=== PATIENT | female | born 1990 | race Caucasian/White ===

== ENCOUNTER 2016-09-05 13:47 | Emergency (ER) | payer MEDICAID ==
[~2016-09-05] VITALS: Ht 157.5 cm; Wt 79.5 kg
[~2016-09-05 13:47] MED LIST: ANDRO 100100 MG/ML IM; BIRTH CONTROL; CATAPRES 0.1MG0.1 MG PO; CEFTIN500 MG PO; CEPHALEXIN500 M1 PO; CHANTIX 1MG1 MG PO; DILANTIN 100MG100 MG PO; FETZIMA80; KEPPRA 500MG500 MG PO; KEPPRA250 MG PO; LEXAPRO20 MG PO; MOBIC15 MG PO; NORCO 325 MG-51 TAB PO; PROMETHAZINE12.5 M5 PO; VALIUM 5MG T5 MG/TAB PO; VENTOLIN0.09 MG IH; VYVANSE50 MG PO; ZITHROMAX 250M250 MG PO; ZOFRAN ODT4 MG PO; ZORVOLEX18 MG PO
[2016-09-05 13:53] VITALS: BP 109/95; PULSE 98; TEMP 99.4
[2016-09-05] MEDS ORDERED: ULTRAM 50MG TAB50 MG PO (15:31)
[2016-09-05] MEDS ORDERED: KEPPRA1000 MG PO (15:31)
[2016-09-05] MEDS ORDERED: NORCO 325 MG-51 TAB PO (15:31)
== END 2016-09-05 16:25 | disposition home or self-care (01) ==
LOC: COL.ER 13:47
DX: M25.552 Pain in left hip (principal); M25.512 Pain in left shoulder; W19.XXXA Unspecified fall, initial encounter; G40.909 Epilepsy, unspecified, not intractable, without status epilepticus
CPT/HCPCS: J1170; J1885

== ENCOUNTER 2016-10-16 02:08 | Emergency (ER) | payer MEDICAID ==
[~2016-10-16] VITALS: Ht 157.5 cm; Wt 79.5 kg
[~2016-10-16 02:08] MED LIST changes: +KEPPRA1000 MG PO; +ULTRAM 50MG TAB50 MG PO
[2016-10-16 02:11] VITALS: TEMP 98.6
[2016-10-16] MEDS ORDERED: KEPPRA XR750 MG PO (02:18)
[2016-10-16 02:54] LABS: BASO # 0.1 (0.0-0.2); BASO % 0.4 % (0.0-2.0); EOS # 0.3 (0.0-0.7); EOS % 2.3 % (0-4.0); GRAN # 6.9 (1.4-6.5); GRAN % 59.6 % (42.2-75.2); HEMATOCRIT 47.8 % (37.0-47.0); HEMOGLOBIN 16.6 g/dl (12.5-16.0); LYMPH # 3.7 (1.2-3.4); LYMPH % 32.1 % (20.0-51.0); MEAN CELL VOLUME 89 fl (80.0-100.0); MEAN CORPUSCULAR HEMOGLOBIN 31 pg (27.0-31.0); MEAN CORPUSCULAR HGB CONC 35 g/dl (33.0-37.0); MEAN PLATELET VOLUME 10.7 fl (7.4-10.4); MONO # 0.6 (0.1-0.6); MONO % 5.2 % (1.7-9.3); PLATELET COUNT 215 K/mm3 (130-400); RED BLOOD COUNT 5.36 M/mm3 (4.10-5.30); REDCELL DISTRIBUTION WIDTH-CV 13.5 % (11.5-14.5); WHITE BLOOD COUNT 11.5 K/mm3 (4.8-10.8)
[2016-10-16] MEDS ORDERED: LAMICTAL XR25 MG PO (02:56)
[2016-10-16 03:04] LABS: ADJUSTED CALCIUM 8.5 mg/dL (8.4-10.2); ALANINE AMINOTRANSFERASE 34 U/L (9-52); ALBUMIN 4.7 gm/dL (3.5-5.0); ALKALINE PHOSPHATASE 75 U/L (50-136); ANION GAP 14 mmol/L (7-16); BLOOD UREA NITROGEN 11 mg/dL (7-17); CALCIUM 9.1 mg/dL (8.4-10.2); CARBON DIOXIDE 23 mmol/L (22-30); CHLORIDE 105 mmol/L (98-107); CREATININE, serum 0.79 mg/dL (0.52-1.25); GLUCOSE 78 mg/dL (74-106); POTASSIUM 3.6 mmol/L (3.4-5.0); SODIUM 141 mmol/L (137-145); TOTAL PROTEIN 7.6 gm/dL (6.4-8.2)
[2016-10-16 03:17] LABS: PH 7 (5-8); SQUAMOUS EPITHELIAL 0-2 /hpf; URINE APPEARANCE Clear; URINE BACTERIA None Seen /hpf; URINE BILIRUBIN Negative (NEGATIVE); URINE BLOOD Negative (NEGATIVE); URINE COLOR Yellow; URINE GLUCOSE Negative (NEGATIVE); URINE KETONE Negative (NEGATIVE)
[2016-10-16 03:22] LABS: C-REACTIVE PROTEIN < 0.5 mg/dL (0.0-0.9)
[2016-10-16] MEDS ORDERED: CEFTIN500 MG PO (03:42)
[2016-10-16 04:05] VITALS: BP 126/75; PULSE 92
== END 2016-10-16 04:08 | disposition home or self-care (01) ==
LOC: COL.ER 02:08
PROVIDERS: Nurse Practitioner
DX: N39.0 Urinary tract infection, site not specified (principal)
CPT/HCPCS: J1170; J2405; J7030

== ENCOUNTER → 2016-10-24 | Outpatient (CLI) | payer MEDICAID ==
[~2016-10-24] MED LIST changes: +KEPPRA XR500 MG PO; +KEPPRA XR750 MG PO; +LAMICTAL 100MG100 MG PO; +LAMICTAL XR25 MG PO; +RESTORIL 77.5 MG/CAP PO
== END ==
LOC: COL.RAD 12:30
DX: G40.309 Generalized idiopathic epilepsy and epileptic syndromes, not intractable, without status epilepticus (principal)
CPT/HCPCS: A9585

== ENCOUNTER 2016-11-11 02:44 | Emergency (ER) | payer MEDICAID ==
[~2016-11-11] VITALS: Ht 160 cm; Wt 79.5 kg
[~2016-11-11 02:44] MED LIST changes: -KEPPRA XR500 MG PO; -LAMICTAL 100MG100 MG PO; -RESTORIL 77.5 MG/CAP PO
[2016-11-11 02:48] VITALS: TEMP 98.4
[2016-11-11] MEDS ORDERED: LAMICTAL 100MG100 MG PO (02:52)
[2016-11-11] MEDS ORDERED: RESTORIL 77.5 MG/CAP PO (02:53)
[2016-11-11 03:10] LABS: BASO % 0.5 % (0.0-2.0); EOS # 0.3 (0.0-0.7); EOS % 3.6 % (0-4.0); GRAN # 4.3 (1.4-6.5); GRAN % 50.7 % (42.2-75.2); HEMATOCRIT 45.9 % (37.0-47.0); HEMOGLOBIN 15.6 g/dl (12.5-16.0); LYMPH # 3.4 (1.2-3.4); LYMPH % 39.8 % (20.0-51.0); MEAN CELL VOLUME 90 fl (80.0-100.0); MEAN CORPUSCULAR HEMOGLOBIN 30 pg (27.0-31.0); MEAN CORPUSCULAR HGB CONC 34 g/dl (33.0-37.0); MEAN PLATELET VOLUME 10.7 fl (7.4-10.4); MONO # 0.4 (0.1-0.6); PLATELET COUNT 219 K/mm3 (130-400); RED BLOOD COUNT 5.13 M/mm3 (4.10-5.30); REDCELL DISTRIBUTION WIDTH-CV 13.2 % (11.5-14.5); WHITE BLOOD COUNT 8.5 K/mm3 (4.8-10.8)
[2016-11-11 03:22] LABS: ADJUSTED CALCIUM 8.6 mg/dL (8.4-10.2); ALBUMIN 4.3 gm/dL (3.5-5.0); BILIRUBIN,TOTAL 0.8 mg/dL (0.0-1.0); CALCIUM 8.8 mg/dL (8.4-10.2); CREATININE, serum 0.74 mg/dL (0.52-1.25); POTASSIUM 3.8 mmol/L (3.4-5.0); TOTAL PROTEIN 6.8 gm/dL (6.4-8.2)
[2016-11-11 03:38] LABS: PROLACTIN 16.2 ng/mL (3.0-18.6)
[2016-11-11] MEDS ORDERED: KEPPRA XR500 MG PO (05:07)
[2016-11-11 05:24] VITALS: BP 120/73; PULSE 78
== END 2016-11-11 05:28 | disposition home or self-care (01) ==
LOC: COL.ER 02:44
PROVIDERS: Emergency Medicine
DX: G40.909 Epilepsy, unspecified, not intractable, without status epilepticus (principal)
CPT/HCPCS: J1885; J3360; J7030

== ENCOUNTER 2016-12-14 15:43 | Emergency (ER) | payer MEDICAID ==
[~2016-12-14] VITALS: Ht 157.5 cm; Wt 79.5 kg
[~2016-12-14 15:43] MED LIST changes: +KEPPRA XR500 MG PO; +LAMICTAL 100MG100 MG PO; +RESTORIL 77.5 MG/CAP PO
[2016-12-14 15:46] VITALS: BP 132/73; TEMP 98.5
[2016-12-14 17:13] LABS: BASO # 0.1 (0.0-0.2); BASO % 0.9 % (0.0-2.0); EOS # 0.4 (0.0-0.7); EOS % 4.8 % (0-4.0); GRAN # 4.2 (1.4-6.5); GRAN % 50.4 % (42.2-75.2); HEMOGLOBIN 15.2 g/dl (12.5-16.0); LYMPH # 3.2 (1.2-3.4); LYMPH % 38.5 % (20.0-51.0); MEAN CELL VOLUME 90 fl (80.0-100.0); MEAN CORPUSCULAR HEMOGLOBIN 31 pg (27.0-31.0); MEAN CORPUSCULAR HGB CONC 35 g/dl (33.0-37.0); MEAN PLATELET VOLUME 11.1 fl (7.4-10.4); MONO # 0.4 (0.1-0.6); PLATELET COUNT 232 K/mm3 (130-400); RED BLOOD COUNT 4.91 M/mm3 (4.10-5.30); REDCELL DISTRIBUTION WIDTH-CV 13.3 % (11.5-14.5); WHITE BLOOD COUNT 8.2 K/mm3 (4.8-10.8)
[2016-12-14 18:15] LABS: ADJUSTED CALCIUM 8.7 mg/dL (8.4-10.2); ALANINE AMINOTRANSFERASE 52 U/L (9-52); ALBUMIN 3.8 gm/dL (3.5-5.0); ALKALINE PHOSPHATASE 65 U/L (50-136); ANION GAP 9 mmol/L (7-16); BILIRUBIN,TOTAL 0.7 mg/dL (0.0-1.0); BLOOD UREA NITROGEN 5 mg/dL (7-17); CALCIUM 8.5 mg/dL (8.4-10.2); CARBON DIOXIDE 24 mmol/L (22-30); CHLORIDE 108 mmol/L (98-107); CREATINE KINASE 64 U/L (30-135); CREATININE, serum 0.61 mg/dL (0.52-1.25); GLUCOSE 85 mg/dL (74-106); POTASSIUM 3.9 mmol/L (3.4-5.0); SODIUM 141 mmol/L (137-145); TOTAL PROTEIN 6.2 gm/dL (6.4-8.2)
[2016-12-14 18:18] LABS: C-REACTIVE PROTEIN < 0.5 mg/dL (0.0-0.9)
[2016-12-14 18:55] VITALS: PULSE 88
== END 2016-12-14 18:55 | disposition home or self-care (01) ==
LOC: COL.ER 15:43
PROVIDERS: Emergency Medicine; Nurse Practitioner
DX: T67.5XXA Heat exhaustion, unspecified, initial encounter (principal); X30.XXXA Exposure to excessive natural heat, initial encounter; G40.909 Epilepsy, unspecified, not intractable, without status epilepticus; G43.909 Migraine, unspecified, not intractable, without status migrainosus
CPT/HCPCS: J1885; J2405; J7030

== ENCOUNTER 2017-02-16 23:24 | Emergency (ER) | payer MEDICAID ==
[~2017-02-16] VITALS: Ht 160 cm; Wt 79.5 kg
[2017-02-16 23:30] VITALS: TEMP 99
[2017-02-17 00:48] LABS: BASO % 0.5 % (0.0-2.0); EOS # 0.3 (0.0-0.7); EOS % 3.3 % (0-4.0); GRAN # 4.4 (1.4-6.5); GRAN % 50.5 % (42.2-75.2); HEMATOCRIT 38.3 % (37.0-47.0); HEMOGLOBIN 13.2 g/dl (12.5-16.0); LYMPH # 3.5 (1.2-3.4); LYMPH % 39.9 % (20.0-51.0); MEAN CELL VOLUME 89 fl (80.0-100.0); MEAN CORPUSCULAR HEMOGLOBIN 31 pg (27.0-31.0); MEAN CORPUSCULAR HGB CONC 35 g/dl (33.0-37.0); MEAN PLATELET VOLUME 10.7 fl (7.4-10.4); MONO # 0.5 (0.1-0.6); MONO % 5.2 % (1.7-9.3); PLATELET COUNT 213 K/mm3 (130-400); RED BLOOD COUNT 4.31 M/mm3 (4.10-5.30); REDCELL DISTRIBUTION WIDTH-CV 13.1 % (11.5-14.5); WHITE BLOOD COUNT 8.7 K/mm3 (4.8-10.8)
[2017-02-17 01:18] LABS: PROLACTIN 24.1 ng/mL (3.0-18.6)
[2017-02-17 03:13] LABS: PH 6 (5-8); SQUAMOUS EPITHELIAL 0-2 /hpf; URINE APPEARANCE Clear; URINE BACTERIA None Seen /hpf; URINE BILIRUBIN Negative (NEGATIVE); URINE BLOOD Negative (NEGATIVE); URINE COLOR Yellow; URINE GLUCOSE Negative (NEGATIVE); URINE KETONE Negative (NEGATIVE); URINE RBC 0-2 /hpf
[2017-02-17 03:36] LABS: AMPHETAMINE URINE NEGATIVE; BARBITURATES URINE NEGATIVE; BENZODIAZEPINES URINE POSITIVE; BUPRENORPHINE URINE NEGATIVE; METHADONE URINE NEGATIVE; OPIATES URINE NEGATIVE; OXYCODONE URINE NEGATIVE; PHENCYCLIDINE URINE NEGATIVE; PROPOXYPHENE URINE NEGATIVE; THC CANNABINOIDS URINE NEGATIVE
[2017-02-17 03:54] VITALS: BP 106/64; PULSE 84
== END 2017-02-17 03:54 | disposition home or self-care (01) ==
LOC: COL.ER 23:24
PROVIDERS: Emergency Medicine
DX: G40.909 Epilepsy, unspecified, not intractable, without status epilepticus (principal); J45.909 Unspecified asthma, uncomplicated
CPT/HCPCS: J1953; J2060; J7030

== ENCOUNTER 2017-02-27 00:58 | Emergency (ER) | payer MEDICAID ==
[~2017-02-27] VITALS: Ht 157.5 cm; Wt 77.3 kg
[2017-02-27] MEDS ORDERED: ZOFRAN 4MG T4 MG/TAB PO (01:13)
[2017-02-27] MEDS ORDERED: IBU800 M1 PO (01:14)
[2017-02-27 01:18] LABS: HEMATOCRIT 46.9 % (37.0-47.0); HEMOGLOBIN 15.9 g/dl (12.5-16.0); MEAN CELL VOLUME 91 fl (80.0-100.0); MEAN CORPUSCULAR HEMOGLOBIN 31 pg (27.0-31.0); MEAN CORPUSCULAR HGB CONC 34 g/dl (33.0-37.0); MEAN PLATELET VOLUME 10.2 fl (7.4-10.4); PLATELET COUNT 307 K/mm3 (130-400); RED BLOOD COUNT 5.13 M/mm3 (4.10-5.30); REDCELL DISTRIBUTION WIDTH-CV 13.2 % (11.5-14.5); WHITE BLOOD COUNT 15.6 K/mm3 (4.8-10.8)
[2017-02-27 01:25] LABS: ADD PATHOLOGY DIFF REVIEW NO
[2017-02-27 01:29] LABS: ADJUSTED CALCIUM 8.7 mg/dL (8.4-10.2); ALANINE AMINOTRANSFERASE 65 U/L (9-52); ALKALINE PHOSPHATASE 65 U/L (50-136); ANION GAP 18 mmol/L (7-16); BILIRUBIN,TOTAL 0.6 mg/dL (0.0-1.0); BLOOD UREA NITROGEN 6 mg/dL (7-17); CALCIUM 9.5 mg/dL (8.4-10.2); CARBON DIOXIDE 22 mmol/L (22-30); CHLORIDE 104 mmol/L (98-107); CREATININE, serum 0.73 mg/dL (0.52-1.25); GLUCOSE 99 mg/dL (74-106); POTASSIUM 3.2 mmol/L (3.4-5.0); SALICYLATE 1.1 mg/dL; SODIUM 144 mmol/L (137-145); TOTAL PROTEIN 8.1 gm/dL (6.4-8.2)
[2017-02-27 01:30] LABS: ACETAMINOPHEN < 10 ug/mL (10-30)
[2017-02-27 01:43] LABS: BAND 12 % (0-10); NEUTROPHILS 43 % (42.0-75.2); TOTAL CELLS COUNTED 100
[2017-02-27] MEDS ORDERED: LEXAPRO20 MG PO (02:21)
[2017-02-27] MEDS ORDERED: AMBIEN 5MG TABLE5 MG PO (02:21)
[2017-02-27 03:24] LABS: PH 6 (5-8); SQUAMOUS EPITHELIAL 0-2 /hpf; URINE APPEARANCE Clear; URINE BACTERIA None Seen /hpf; URINE BILIRUBIN Negative (NEGATIVE); URINE BLOOD Negative (NEGATIVE); URINE COLOR Straw; URINE GLUCOSE Negative (NEGATIVE); URINE KETONE Negative (NEGATIVE); URINE RBC 0-2 /hpf; URINE UROBILINOGEN Negative (NEGATIVE); URINE WBC 0-2 /hpf
[2017-02-27 03:32] LABS: AMPHETAMINE URINE NEGATIVE; BARBITURATES URINE NEGATIVE; BENZODIAZEPINES URINE POSITIVE; BUPRENORPHINE URINE NEGATIVE; METHADONE URINE NEGATIVE; OPIATES URINE NEGATIVE; OXYCODONE URINE NEGATIVE; PHENCYCLIDINE URINE NEGATIVE; PROPOXYPHENE URINE NEGATIVE; THC CANNABINOIDS URINE NEGATIVE
[2017-02-27 04:28] VITALS: BP 129/85; PULSE 97
== END 2017-02-27 04:29 | disposition home or self-care (01) ==
LOC: COL.ER 00:58
PROVIDERS: Emergency Medicine
DX: F43.10 Post-traumatic stress disorder, unspecified (principal); R56.9 Unspecified convulsions; R45.851 Suicidal ideations; F41.9 Anxiety disorder, unspecified; G40.909 Epilepsy, unspecified, not intractable, without status epilepticus
CPT/HCPCS: J2060; J7030

== ENCOUNTER 2017-09-26 22:33 | Emergency (ER) | payer OTHER, MEDICAID ==
[~2017-09-26] VITALS: Ht 160 cm; Wt 88.6 kg
[~2017-09-26 22:33] MED LIST changes: +AMBIEN 5MG TABLE5 MG PO; -ANDRO 100100 MG/ML IM; +DEPO-TESTOS100 MG/ML IM; +IBU800 M1 PO; +ZOFRAN 4MG T4 MG/TAB PO
[2017-09-26 22:42] VITALS: TEMP 98.1
[2017-09-26 23:27] LABS: BASO % 0.4 % (0.0-2.0); EOS # 0.3 (0.0-0.7); EOS % 2.9 % (0-4.0); GRAN # 5.6 (1.4-6.5); GRAN % 63.3 % (42.2-75.2); HEMATOCRIT 46.1 % (37.0-47.0); HEMOGLOBIN 15.6 g/dl (12.5-16.0); LYMPH # 2.5 (1.2-3.4); LYMPH % 28.2 % (20.0-51.0); MEAN CELL VOLUME 90 fl (80.0-100.0); MEAN CORPUSCULAR HEMOGLOBIN 30 pg (27.0-31.0); MEAN CORPUSCULAR HGB CONC 34 g/dl (33.0-37.0); MONO # 0.4 (0.1-0.6); MONO % 4.8 % (1.7-9.3); PLATELET COUNT 210 K/mm3 (130-400); RED BLOOD COUNT 5.15 M/mm3 (4.10-5.30); REDCELL DISTRIBUTION WIDTH-CV 12.7 % (11.5-14.5)
[2017-09-26 23:48] LABS: ALBUMIN 4.2 gm/dL (3.5-5.0); BILIRUBIN,TOTAL 0.5 mg/dL (0.0-1.0); C-REACTIVE PROTEIN 1.2 mg/dL (0.0-0.9); CALCIUM 9.1 mg/dL (8.4-10.2); CREATININE, serum 0.8 mg/dL (0.52-1.25); POTASSIUM 3.9 mmol/L (3.4-5.0); TOTAL PROTEIN 7.5 gm/dL (6.4-8.2)
[2017-09-26 23:54] LABS: COLLECTION METHOD CLEAN CATCH
[2017-09-27] VITALS (63 sets, daily range): BP systolic 130; BP diastolic 91; PULSE 79; O2SAT 95–100
[2017-09-27 00:01] LABS: PH 8 (5-8); SQUAMOUS EPITHELIAL None Seen /hpf; URINE APPEARANCE Clear; URINE BACTERIA None Seen /hpf; URINE BILIRUBIN Negative (NEGATIVE); URINE BLOOD Negative (NEGATIVE); URINE COLOR Straw; URINE GLUCOSE Negative (NEGATIVE); URINE KETONE Negative (NEGATIVE); URINE LEUKOCYTE ESTERASE 1+ (NEGATIVE); URINE NITRATE Negative (NEGATIVE); URINE PROTEIN(semi-quant) Negative (NEGATIVE); URINE RBC 0-2 /hpf; URINE UROBILINOGEN Negative (NEGATIVE)
[2017-09-27] MEDS ORDERED: ABILIFY2 MG PO (00:52)
[2017-09-27] MEDS ORDERED: CATAPRES 0.1MG0.1 MG PO (00:52)
[2017-09-27] MEDS ORDERED: BUSPAR DIVIDOSE15 MG PO (00:53)
[2017-09-27] MEDS ORDERED: ATIVAN 1MG T1 MG/TAB PO (00:55)
[2017-09-27] MEDS ORDERED: ATIVAN 2MG/ML2 MG/ML IJ (00:55)
[2017-09-27] MEDS ORDERED: CIPRO 500MG TA500 MG PO (02:04)
[2017-09-27] MEDS ORDERED: KEPPRA 500MG500 MG PO (02:04)
[2017-09-28] VITALS (754 sets, daily range): O2SAT 65–100
== END 2017-09-27 06:10 | disposition home or self-care (01) ==
LOC: COL.ER 22:33 → EDSEX 22:34 → COL.ER 22:34
PROVIDERS: Emergency Medicine
DX: G40.909 Epilepsy, unspecified, not intractable, without status epilepticus (principal); N39.0 Urinary tract infection, site not specified; F17.210 Nicotine dependence, cigarettes, uncomplicated; F90.9 Attention-deficit hyperactivity disorder, unspecified type; Z98.890 Other specified postprocedural states
CPT/HCPCS: J1885; J1953; J2060; J7040

== ENCOUNTER 2017-09-27 12:09 | Observation (INO) | payer OTHER, MEDICAID ==
[~2017-09-27] VITALS: Ht 160 cm; Wt 89.1 kg
[~2017-09-27 12:09] MED LIST changes: -ABILIFY5 MG PO; -BUSPAR 30MG30 MG/TAB PO; -FLEXERIL 1010 MG/TAB PO; -TORADOL 10MG TA10 MG PO
[2017-09-27 16:40] LABS: CALCIUM 9.1 mg/dL (8.4-10.2); CREATININE, serum 0.73 mg/dL (0.52-1.25); POTASSIUM 3.9 mmol/L (3.4-5.0)
[2017-09-27 16:57] LABS: PROLACTIN 8.2 ng/mL (3.0-18.6)
[2017-09-27 18:29] LABS: GLUCOSE,CSF 52 mg/dL (40-70); TOTAL PROTEIN,CSF 45 mg/dL (15-45)
[2017-09-27 19:05] LABS: CSF COLOR PINK
[2017-09-27 19:06] LABS: CSF APPEARANCE CLEAR; CSF COLOR COLORLESS; CSF MONONUCLEAR 50 % (70-100); CSF POLYMORPHONUCLEAR 50 % (0-6); CSF RBC 1350 /mm3 (0-0); CSF RBC 4 /mm3 (0-0)
[2017-09-27 20:47] VITALS: BP 131/96; PULSE 106; TEMP 98.5
[2017-09-28] VITALS: BP 105/68; PULSE 82; TEMP 98
[2017-09-28 04:00] VITALS: BP 93/90; PULSE 76; TEMP 98.8
[2017-09-28 05:57] LABS: BASO % 0.4 % (0.0-2.0); EOS # 0.2 (0.0-0.7); EOS % 2.5 % (0-4.0); GRAN # 4.7 (1.4-6.5); GRAN % 56.1 % (42.2-75.2); HEMATOCRIT 43.6 % (37.0-47.0); HEMOGLOBIN 14.7 g/dl (12.5-16.0); LYMPH # 2.9 (1.2-3.4); LYMPH % 33.9 % (20.0-51.0); MEAN CELL VOLUME 89 fl (80.0-100.0); MEAN CORPUSCULAR HEMOGLOBIN 30 pg (27.0-31.0); MEAN CORPUSCULAR HGB CONC 34 g/dl (33.0-37.0); MEAN PLATELET VOLUME 10.2 fl (7.4-10.4); MONO # 0.6 (0.1-0.6); MONO % 6.5 % (1.7-9.3); PLATELET COUNT 206 K/mm3 (130-400); RED BLOOD COUNT 4.89 M/mm3 (4.10-5.30)
[2017-09-28 06:25] LABS: ALBUMIN 3.5 gm/dL (3.5-5.0); BILIRUBIN,TOTAL 1.3 mg/dL (0.0-1.0); CALCIUM 8.7 mg/dL (8.4-10.2); CREATININE, serum 0.8 mg/dL (0.52-1.25); TOTAL PROTEIN 6.3 gm/dL (6.4-8.2)
[2017-09-28 09:06] VITALS: BP 134/95; PULSE 92; TEMP 98.4
[2017-09-28 12:00] VITALS: BP 126/74; PULSE 74; TEMP 98.2
[2017-09-28 16:44] VITALS: BP 96/58; PULSE 121
[2017-09-28 20:00] VITALS: BP 125/80; PULSE 80; TEMP 98.9
[2017-09-29] VITALS (7 sets, daily range): BP systolic 96–121; BP diastolic 53–85; PULSE 58–96; TEMP 87.5–98.6
[2017-09-29 06:35] LABS: BASO % 0.3 % (0.0-2.0); EOS # 0.2 (0.0-0.7); EOS % 2.3 % (0-4.0); GRAN # 5.2 (1.4-6.5); GRAN % 57.3 % (42.2-75.2); HEMATOCRIT 41.5 % (37.0-47.0); HEMOGLOBIN 14.3 g/dl (12.5-16.0); LYMPH % 33.4 % (20.0-51.0); MEAN CELL VOLUME 88 fl (80.0-100.0); MEAN CORPUSCULAR HEMOGLOBIN 30 pg (27.0-31.0); MEAN CORPUSCULAR HGB CONC 35 g/dl (33.0-37.0); MEAN PLATELET VOLUME 10.1 fl (7.4-10.4); MONO # 0.5 (0.1-0.6); PLATELET COUNT 215 K/mm3 (130-400); RED BLOOD COUNT 4.71 M/mm3 (4.10-5.30); REDCELL DISTRIBUTION WIDTH-CV 12.6 % (11.5-14.5)
[2017-09-29 06:51] LABS: CALCIUM 8.6 mg/dL (8.4-10.2); CREATININE, serum 0.77 mg/dL (0.52-1.25); POTASSIUM 3.6 mmol/L (3.4-5.0)
[2017-09-29] MEDS ORDERED: TORADOL 10MG TA10 MG PO (12:10)
[2017-09-30 01:26] VITALS: BP 145/85; PULSE 110
[2017-09-30 02:38] VITALS: BP 124/66; PULSE 72; TEMP 98.6
[2017-09-30 08:05] VITALS: BP 122/82; PULSE 81; TEMP 98.4
[2017-09-30 12:47] VITALS: BP 114/66; PULSE 85; TEMP 98.3
[2017-09-30] MEDS ORDERED: BUSPAR DIVIDOSE15 MG PO (14:57)
[2017-09-30] MEDS ORDERED: ABILIFY5 MG PO (14:57)
[2017-09-30] MEDS ORDERED: FLEXERIL 1010 MG/TAB PO (14:58)
[2017-09-30] MEDS ORDERED: BUSPAR 30MG30 MG/TAB PO (14:58)
== END 2017-09-30 17:00 | disposition home or self-care (01) ==
LOC: COL.ER 12:09 → EDSEX 12:12 → MEDICAL 17:12 → ICU 17:12 → MEDICAL 17:12
PROVIDERS: Emergency Medicine; Family Medicine; Internal Medicine; Nurse Practitioner
DX: F45.9 Somatoform disorder, unspecified (principal); R56.9 Unspecified convulsions; R32 Unspecified urinary incontinence; M54.5 Low back pain; Z91.040 Latex allergy status; Z91.041 Radiographic dye allergy status; Z91.048 Other nonmedicinal substance allergy status; Z91.09 Other allergy status, other than to drugs and biological substances; Z88.5 Allergy status to narcotic agent; Z88.8 Allergy status to other drugs, medicaments and biological substances; Z88.6 Allergy status to analgesic agent
CPT/HCPCS: 99223-AI; 99232-AI; A4216; G0378; J1650; J1953; J2060; J3486; J7030

== ENCOUNTER → 2017-09-27 | Outpatient (CLI) | payer OTHER, MEDICAID ==
[~2017-09-27] MED LIST changes: +ABILIFY2 MG PO; +ABILIFY5 MG PO; +ATIVAN 1MG T1 MG/TAB PO; +ATIVAN 2MG/ML2 MG/ML IJ; +BUSPAR 30MG30 MG/TAB PO; +BUSPAR DIVIDOSE15 MG PO; +CIPRO 500MG TA500 MG PO; +FLEXERIL 1010 MG/TAB PO; +TORADOL 10MG TA10 MG PO
== END ==
LOC: COL.RAD 11:47 → EDSEX 11:47
DX: M54.5 Low back pain (principal); R20.0 Anesthesia of skin; R32 Unspecified urinary incontinence; W19.XXXD Unspecified fall, subsequent encounter; Y92.009 Unspecified place in unspecified non-institutional (private) residence as the place of occurrence of the external cause
CPT/HCPCS: A9585

== ENCOUNTER 2017-10-18 14:45 | Outpatient (RCR) | payer OTHER, MEDICAID ==
[~2017-10-18 14:45] MED LIST changes: +ABILIFY5 MG PO; +BUSPAR 30MG30 MG/TAB PO; +FLEXERIL 1010 MG/TAB PO; +TORADOL 10MG TA10 MG PO
== END 2017-10-18 15:36 | disposition home or self-care (01) ==
LOC: WSC 14:45
DX: R29.898 Other symptoms and signs involving the musculoskeletal system (principal); R20.2 Paresthesia of skin